=== PATIENT | female | born 1980 | race Caucasian/White ===

== ENCOUNTER 2017-02-14 00:20 | Emergency (ER) | payer BC, OTHER ==
[~2017-02-14] VITALS: Ht 162.6 cm; Wt 61.7 kg
[2017-02-14 00:24] VITALS: Ht 162.6 cm; Wt 61.7 kg
[2017-02-14 02:18] LABS: URINE BLOOD (Dip) POC Trace-intact (NEGATIVE)
[2017-02-14 02:51] LABS: BASOPHILS % 0.7 % (0.0-2.0); EOSINOPHILS # 0.1 10^3/ul (0.0-0.5); EOSINOPHILS % 1.7 % (0.0-7.0); HEMATOCRIT 33.7 % (37.0-47.0); LYMPHOCYTES # 2.1 10^3/ul (0.8-2.9); LYMPHOCYTES % 35.5 % (15.0-51.0); MEAN CORPUSCULAR HEMOGLOBIN 32.2 pg (29.0-33.0); MEAN CORPUSCULAR HGB CONC 35.6 g/dl (32.0-37.0); MEAN CORPUSCULAR VOLUME 90.3 fl (82.0-101.0); MEAN PLATELET VOLUME 12.2 fl (7.4-10.4); MONOCYTE # 0.6 10^3/ul (0.3-0.9); MONOCYTES % 10.4 % (0.0-11.0); NEUTROPHILS % 51.5 % (39.0-77.0); PLATELET COUNT 151 10^3/UL (140-415); RED BLOOD COUNT 3.73 10^6/ul (4.20-5.40); RED CELL DISTRIBUTION WIDTH 12.6 % (11.5-14.5); WHITE BLOOD COUNT 5.9 10^3/ul (4.8-10.8)
--- NOTE | 2017-02-14 02:55 | ERD ---
ER Documentation Chief Complaint Chief Complaint took alot of meth awhile ago per pt; pt hallucinating/delusions/ has SI HPI 36-year-old female admits to using methamphetamines. Patient states she is hallucinating with auditory and visual. Patient expresses suicidal ideation. History of prior psychiatric admissions. ROS All systems reviewed and are negative except as per history of present illness. Allergies Allergies: Coded Allergies: No Known Allergy (Unverified , 02/14/17) PMhx/Soc Medical and Surgical Hx: pt denies Medical Hx History of Surgery: Yes (gall bladder) Anesthesia Reaction: No Hx Neurological Disorder: No Hx Respiratory Disorders: No Hx Cardiac Disorders: No Hx Psychiatric Problems: No Hx Miscellaneous Medical Probl: No Hx Alcohol Use: Yes Hx Substance Use: Yes Hx Tobacco Use: No Smoking Status: Former smoker Physical Exam Vitals Vital Signs Date Time Temp Pulse Resp B/P Pulse Ox O2 Delivery O2 Flow Rate FiO2 02/14/17 01:19 97.8 78 128/75 99 Room Air 02/14/17 00:24 98.6 85 20 155/74 96 Physical Exam Const: [] Head: Atraumatic Eyes: Normal Conjunctiva ENT: Normal External Ears, Nose and Mouth. Neck: Full range of motion..~ No meningismus. Resp: Clear to auscultation bilaterally Cardio: Regular rate and rhythm, no murmurs Abd: Soft, non tender, non distended. Normal bowel sounds Skin: No petechiae or rashes Back: No midline or flank tenderness Ext: No cyanosis, or edema Neur: Awake and alert Psych: Normal Mood and Affect Result Diagram: 02/14/17 0205 Results 24 hrs Laboratory Tests Test 02/14/17 02:05 02/14/17 02:16 White Blood Count 5.910^3/ul Red Blood Count 3.7310^6/ul Hemoglobin 12.0g/dl Hematocrit 33.7% Mean Corpuscular Volume 90.3fl Mean Corpuscular Hemoglobin 32.2pg Mean Corpuscular Hemoglobin Concent 35.6g/dl Red Cell Distribution Width 12.6% Platelet Count 34299^3/UL Mean Platelet Volume 12.2fl Neutrophils % 51.5% Lymphocytes % 35.5% Monocytes % 10.4% Eosinophils % 1.7% Basophils % 0.7% Nucleated Red Blood Cells % 0.0/100WBC Neutrophils # 3.010^3/ul Lymphocytes # 2.110^3/ul Monocytes # 0.610^3/ul Eosinophils # 0.110^3/ul Basophils # 0.010^3/ul Nucleated Red Blood Cells # 0.010^3/ul Bedside Urine pH (LAB) 6.0 Bedside Urine Protein (LAB) Negative Bedside Urine Glucose (UA) Negative Bedside Urine Ketones (LAB) Negative Bedside Urine Blood Trace-intact Bedside Urine Nitrite (LAB) Negative Bedside Urine Leukocyte Esterase (L Negative Procedures/MDM Patient's behavioral symptoms have stabilized while in the department. Patient is medically cleared and appropriate for psychiatric evaluation and work up. No e/o neurologic, toxic, infectious, or metabolic cause. Departure Diagnosis: Primary Impression: Drug use Additional Impression: Suicidal ideation Condition: Serious KAM FERREIRA Feb 14, 2017 02:54
[2017-02-14 03:13] LABS: ALANINE AMINOTRANSFERASE 31 IU/L (13-69); ALBUMIN 3.6 g/dl (3.3-4.9); ALBUMIN/GLOBULIN RATIO 1.16; ALKALINE PHOSPHATASE 65 IU/L (42-121); ANION GAP 13 (8-16); ASPARTATE AMINO TRANSFERASE 19 IU/L (15-46); BILIRUBIN,INDIRECT 0.4 mg/dl (0-1.1); BILIRUBIN,TOTAL 0.4 mg/dl (0.2-1.3); BLOOD UREA NITROGEN 12 mg/dl (7-20); CALCIUM 8.9 mg/dl (8.4-10.2); CARBON DIOXIDE 27 mmol/L (21-31); CHLORIDE 104 mmol/L (97-110); CREATININE 0.62 mg/dl (0.44-1.00); GLUCOSE 95 mg/dl (70-220); POTASSIUM 3.3 mmol/L (3.5-5.1); SODIUM 141 mmol/L (135-144); TOTAL PROTEIN 6.7 g/dl (6.1-8.1)
[2017-02-14 03:19] LABS: ADD UMIC NO; UR ASCORBIC ACID NEGATIVE (NEGATIVE); UR BILIRUBIN (Dip) NEGATIVE (NEGATIVE); UR BLOOD (Dip) NEGATIVE (NEGATIVE); UR CLARITY CLEAR (CLEAR); UR COLOR STRAW (YELLOW); UR GLUCOSE (Dip) NEGATIVE (NEGATIVE); UR KETONES (Dip) NEGATIVE (NEGATIVE); UR LEUKOCYTE ESTERASE (Dip) NEGATIVE Leu/ul (NEGATIVE); UR NITRITE (Dip) NEGATIVE (NEGATIVE); UR SPECIFIC GRAVITY (Dip) 1.002 (1.003-1.030); UR TOTAL PROTEIN (Dip) NEGATIVE (NEGATIVE); UR UROBILINOGEN (Dip) NEGATIVE (NEGATIVE)
[2017-02-14 03:29] LABS: ACETAMINOPHEN < 10.0 ug/ml (10.0-30.0)
[2017-02-14 03:30] LABS: ETHANOL < 10.0 mg/dl; SALICYLATE < 1.0 mg/dl (5.0-30.0)
[2017-02-14 03:50] LABS: BARBITURATES Negative (NEGATIVE); BENZODIAZEPINES Negative (NEGATIVE); CANNABINOIDS Negative (NEGATIVE); COCAINE Negative (NEGATIVE); OPIATES Negative (NEGATIVE)
--- NOTE | 2017-02-14 05:57 | PSY ---
Date/Time of Note Date/Time of Note DATE: 02/14/17 TIME: 05:45 Psychiatric Subjective Eval Consent Pt consented to telemedicine: Yes Subjective Evaluation Chief Complaint: took alot of meth awhile ago per pt; pt hallucinating/ delusions/ has SI Reason for consult: i was not feeling good History of present illness patient is a 36 yo female with PPH Of depression and amphetamine abuse who was walked in to the ER due to being confused , during the interview patient is very drowsy , falling asleep while asking her questions, she is illogical when she answers me, does not know the name of the hospital , does not know why she is in the hospital , states that she used crystal meth but her utox is negative , she thinks it is 2016. Past psychiatric history unknown Medical history Problems Medical Problems: (1) Drug use Status: Acute (2) Suicidal ideation Status: Acute Allergies: Coded Allergies: No Known Allergy (Unverified , 02/14/17) Substance Abuse Substance abuse history: Yes Prior substance abuse treatmen: No Social History Marital status: single Level of education: unknown DPA/Conservatorship: No Occupation/Fci: no Psychiatric Objective Eval Review of Systems: Review of Systems: Not Applicable Mental Status Examination: Appearance: Disheveled Eye Contact: Poor Psychomotor Activity: Agitated Behavior: Bizarre Speech: Disorganized AFFECT: Libile Mood: Other Though Process: Loose Thought Content: Delusions Suicidal: No Homicidal: No On 72 hour hold: No Orientation: x1 Cognition: Drowsy Insight: Impared Judgement: Impared Attention Span: Distractible Laboratory Results Laboratory Tests Test 02/14/17 01:45 02/14/17 02:05 02/14/17 02:16 Urine Color STRAW Urine Clarity CLEAR Urine pH 6.0 Urine Specific [place] 1.002 Urine Ketones NEGATIVEmg/dL Urine Nitrite NEGATIVEmg/dL Urine Bilirubin NEGATIVEmg/dL Urine Urobilinogen NEGATIVEmg/dL Urine Leukocyte Esterase NEGATIVELeu/ul Urine Hemoglobin NEGATIVEmg/dL Urine Glucose NEGATIVEmg/dL Urine Total Protein NEGATIVEmg/dl Urine Opiates Screen Negative Urine Barbiturates Negative Urine Amphetamines Screen Negative Urine Benzodiazepines Screen Negative Urine Cocaine Screen Negative Urine Cannabinoids Negative White Blood Count 5.910^3/ul Red Blood Count 3.7310^6/ul Hemoglobin 12.0g/dl Hematocrit 33.7% Mean Corpuscular Volume 90.3fl Mean Corpuscular Hemoglobin 32.2pg Mean Corpuscular Hemoglobin Concent 35.6g/dl Red Cell Distribution Width 12.6% Platelet Count 08392^3/UL Mean Platelet Volume 12.2fl Neutrophils % 51.5% Lymphocytes % 35.5% Monocytes % 10.4% Eosinophils % 1.7% Basophils % 0.7% Nucleated Red Blood Cells % 0.0/100WBC Neutrophils # 3.010^3/ul Lymphocytes # 2.110^3/ul Monocytes # 0.610^3/ul Eosinophils # 0.110^3/ul Basophils # 0.010^3/ul Nucleated Red Blood Cells # 0.010^3/ul Sodium Level 141mmol/L Potassium Level 3.3mmol/L Chloride Level 104mmol/L Carbon Dioxide Level 27mmol/L Anion Gap 13 Blood Urea Nitrogen 12mg/dl Creatinine 0.62mg/dl Glucose Level 95mg/dl Calcium Level 8.9mg/dl Total Bilirubin 0.4mg/dl Direct Bilirubin 0.00mg/dl Indirect Bilirubin 0.4mg/dl Aspartate Amino Transf (AST/SGOT) 19IU/L Alanine Aminotransferase (ALT/SGPT) 31IU/L Alkaline Phosphatase 65IU/L Total Protein 6.7g/dl Albumin 3.6g/dl Globulin 3.10g/dl Albumin/Globulin Ratio 1.16 Salicylates Level < 1.0mg/dl Acetaminophen Level < 10.0ug/ml Ethyl Alcohol Level < 10.0mg/dl Bedside Urine pH (LAB) 6.0 Bedside Urine Protein (LAB) Negative Bedside Urine Glucose (UA) Negative Bedside Urine Ketones (LAB) Negative Bedside Urine Blood Trace-intact Bedside Urine Nitrite (LAB) Negative Bedside Urine Leukocyte Esterase (L Negative Assessment and Plan Recommendation/Plan Medication Management haldol 5 mg po bid with ativan 1 mg po bid for psychosis Follow-up/Disposition patient is currently too drowsy and disorganized for interview please reconsult in few hours NGHIA RASHEED MD Feb 14, 2017 05:57
--- NOTE | 2017-02-14 13:38 | PSY ---
Date/Time of Note Date/Time of Note DATE: 02/14/17 TIME: 13:34 Psychiatric Subjective Eval Consent Pt consented to telemedicine: Yes Subjective Evaluation Patient location: emergency Chief Complaint: took alot of meth awhile ago per pt; pt hallucinating/ delusions/ has SI Reason for consult: i was not feeling good History of present illness 36 yo homeless female who came in to ED c/o hallucinations and paranoia, claiming, she ODd on meth. UDS was negative. Pt was too sedated to be evaluated by Dr Clement. This afternoon she is still drowsy but arousable. She says she is fine. She is oriented to place only. She doesn't know the year. She doesn't know what city she is in. She denies Sir of [place],d enies or . disorganzied , delusional. Says she will walk outside to find her bf. she is not able to plan for food fpc and clothing. Past psychiatric history multiple inpt Hospitalization: yes Family History unknown Medical history Problems Medical Problems: (1) Drug use Status: Acute (2) Suicidal ideation Status: Acute Allergies: Coded Allergies: No Known Allergy (Unverified , 02/14/17) Substance Abuse Substance abuse history: Yes Prior substance abuse treatmen: Yes Social History Marital status: single Level of education: unknown DPA/Conservatorship: No Occupation/Fdc: no Psychiatric Objective Eval Physical Examination: Physical Examination: Not Applicable Mental Status Examination: Appearance: Disheveled Eye Contact: Fair Psychomotor Activity: Slow Behavior: Cooperative Speech: Disorganized, Slurred AFFECT: Libile Mood: Other Though Process: Tangential Thought Content: Delusions Suicidal: No Homicidal: No On 72 hour hold: No Orientation: x2 Cognition: Drowsy Insight: Impared Judgement: Impared Attention Span: Distractible Laboratory Results Laboratory Tests Test 02/14/17 01:45 02/14/17 02:05 02/14/17 02:16 Urine Color STRAW Urine Clarity CLEAR Urine pH 6.0 Urine Specific [place] 1.002 Urine Ketones NEGATIVEmg/dL Urine Nitrite NEGATIVEmg/dL Urine Bilirubin NEGATIVEmg/dL Urine Urobilinogen NEGATIVEmg/dL Urine Leukocyte Esterase NEGATIVELeu/ul Urine Hemoglobin NEGATIVEmg/dL Urine Glucose NEGATIVEmg/dL Urine Total Protein NEGATIVEmg/dl Urine Opiates Screen Negative Urine Barbiturates Negative Urine Amphetamines Screen Negative Urine Benzodiazepines Screen Negative Urine Cocaine Screen Negative Urine Cannabinoids Negative White Blood Count 5.910^3/ul Red Blood Count 3.7310^6/ul Hemoglobin 12.0g/dl Hematocrit 33.7% Mean Corpuscular Volume 90.3fl Mean Corpuscular Hemoglobin 32.2pg Mean Corpuscular Hemoglobin Concent 35.6g/dl Red Cell Distribution Width 12.6% Platelet Count 40938^3/UL Mean Platelet Volume 12.2fl Neutrophils % 51.5% Lymphocytes % 35.5% Monocytes % 10.4% Eosinophils % 1.7% Basophils % 0.7% Nucleated Red Blood Cells % 0.0/100WBC Neutrophils # 3.010^3/ul Lymphocytes # 2.110^3/ul Monocytes # 0.610^3/ul Eosinophils # 0.110^3/ul Basophils # 0.010^3/ul Nucleated Red Blood Cells # 0.010^3/ul Sodium Level 141mmol/L Potassium Level 3.3mmol/L Chloride Level 104mmol/L Carbon Dioxide Level 27mmol/L Anion Gap 13 Blood Urea Nitrogen 12mg/dl Creatinine 0.62mg/dl Glucose Level 95mg/dl Calcium Level 8.9mg/dl Total Bilirubin 0.4mg/dl Direct Bilirubin 0.00mg/dl Indirect Bilirubin 0.4mg/dl Aspartate Amino Transf (AST/SGOT) 19IU/L Alanine Aminotransferase (ALT/SGPT) 31IU/L Alkaline Phosphatase 65IU/L Total Protein 6.7g/dl Albumin 3.6g/dl Globulin 3.10g/dl Albumin/Globulin Ratio 1.16 Salicylates Level < 1.0mg/dl Acetaminophen Level < 10.0ug/ml Ethyl Alcohol Level < 10.0mg/dl Bedside Urine pH (LAB) 6.0 Bedside Urine Protein (LAB) Negative Bedside Urine Glucose (UA) Negative Bedside Urine Ketones (LAB) Negative Bedside Urine Blood Trace-intact Bedside Urine Nitrite (LAB) Negative Bedside Urine Leukocyte Esterase (L Negative Assessment and Plan Assessment/Diagnosis Ray I: Unspecified psychosis. Ray II: defered Ray III: NAD Ray IV: severe Ray V: GAF 25 Recommendation/Plan Medication Management Zyprexa 5 mg po bid Psychotherapy defer to inpt Follow-up/Disposition 5150 for GD; transfer to inpt psych 5150 Recommendation: Place Hold CHADWICKDANNY MD Feb 14, 2017 13:38
--- NOTE | 2017-02-14 14:04 | QN ---
Documentation Comment Observation Note: Time: 4 hours Family Hx: No Hypertension, patient is arousable Evaluation: This 36-year-old female presents to the ER for evaluation of possible overdose. This patient was to drowsy to be evaluated by tele-psych overnight. I was able to arouse the patient and she was answering questions appropriately. I did contact tele-psychiatric physician Dr. Sánchez who is evaluated this patient and recommends a 5150 hold. She also recommends a Zyprexa 5 mg p.o. twice daily. First dose was given in the emergency room, and we will contact PMRT at this point ARIANNE LI DO Feb 14, 2017 14:04
[2017-02-14] MEDS ORDERED: OLANZAPINE 5 MG TAB PO ONE (14:30)
[2017-02-14 22:56] VITALS: BP 108/83; PULSE 54; RESP 16; TEMP 97.8
== END 2017-02-14 22:58 ==
LOC: E/R 00:20
DX: F15.90 Other stimulant use, unspecified, uncomplicated (principal); R44.0 Auditory hallucinations; R44.1 Visual hallucinations; R45.851 Suicidal ideations; R40.2242 Coma scale, best verbal response, confused conversation, at arrival to emergency department; R40.2132 Coma scale, eyes open, to sound, at arrival to emergency department; R40.2362 Coma scale, best motor response, obeys commands, at arrival to emergency department
CPT/HCPCS: 36415; 80053; 80306; 80307; 81003; 85025; 99285; Z7610